=== PATIENT | male | born 1935 | race Caucasian/White ===

== ENCOUNTER 2017-05-22 10:50 | Emergency (ER) | payer OTHER ==
[~2017-05-22] VITALS: Ht 182.9 cm; Wt 122.6 kg
[2017-05-22 11:58] LABS: HEMOGLOBIN 12.9 G/DL (12.5-16.6); MCH 31.5 PG (29.0-34.0); MCHC 33.1 G/DL (30.0-36.0); MCV 95.4 FL (86-99); PLATELET COUNT 211 K/uL (156-360); RBC DIS.WIDTH-CV 13.4 % (11.8-14.6); RBC DIS.WIDTH-SD 47.3 % (39-53); RED BLOOD COUNT 4.09 M/uL (4.00-5.50); WHITE BLOOD COUNT 6.9 K/uL (4.1-10.2)
[2017-05-22 12:07] LABS: CHLORIDE 103 mEq/L (99-109); POTASSIUM 4.7 mEq/L (3.7-5.4); SODIUM 134 mEq/L (136-147)
[2017-05-22 12:08] LABS: MAGNESIUM 1.5 mg/dL (1.3-2.7)
[2017-05-22 12:10] LABS: GLUCOSE 156 mg/dL (70-99); TOTAL PROTEIN 7.1 g/dL (6.4-8.3)
[2017-05-22 12:12] LABS: TOTAL BILIRUBIN 0.3 mg/dL (0.0-1.0)
[2017-05-22 12:13] LABS: ALKALINE PHOSPHATASE 64 IU/L (3-129)
[2017-05-22 12:14] LABS: CREATININE 1.2 mg/dL (0.6-1.3); GFR ESTIMATE (CALCULATED) > 59 mL/min/ (58.99-99999)
[2017-05-22 12:15] LABS: AST (GOT) 21 IU/L (2-34); UREA NITROGEN (BUN) 20 mg/dL (9-23)
[2017-05-22 12:17] LABS: ALT (GPT) 18 IU/L (3-49); CREATINE KINASE 205 IU/L (1-294); TOTAL CK 205 IU/L (1-294)
[2017-05-22 12:18] LABS: TROP-I INTERPRETATION NEGATIVE; TROPONIN-I < 0.01 ng/mL (0.0-0.30)
[2017-05-22 12:28] LABS: D-DIMER ELISA < 150.00 ng/mLDDU (<230)
[2017-05-22 12:29] LABS: INTER. NORMALIZED RATIO 2.8
[2017-05-22] MEDS ORDERED: LEVAQUIN750 MG PO (12:48)
[2017-05-22] MEDS ORDERED: TESSALON PERLE100 MG PO (12:51)
[2017-05-22 13:01] VITALS: BP 129/63
== END 2017-05-22 13:03 | disposition home or self-care (01) ==
LOC: EME 10:50
PROVIDERS: Emergency Medicine
DX: J20.9 Acute bronchitis, unspecified (principal); R00.8 Other abnormalities of heart beat; I10 Essential (primary) hypertension; K21.9 Gastro-esophageal reflux disease without esophagitis; E11.9 Type 2 diabetes mellitus without complications; Z87.891 Personal history of nicotine dependence; Z90.49 Acquired absence of other specified parts of digestive tract; Z96.652 Presence of left artificial knee joint; Z85.828 Personal history of other malignant neoplasm of skin
CPT/HCPCS: 71046; 80053; 82550; 82553; 83735; 84484; 85027; 85379; 85610; 93005; 99281; 99285